=== PATIENT | male | born 1975 | race Caucasian/White ===

== ENCOUNTER → 2017-08-04 | Emergency (ER) | payer MEDICAID ==
[~2017-08-04] VITALS: Ht 175.3 cm; Wt 95.3 kg
[~2017-08-04] MED LIST: ALBUTEROL FS 2.5 MG/0.5 ML VIAL.NEB NEB ONE; ALBUTEROL FS 2.5 MG/0.5 ML VIAL.NEB ONE; ASPIRIN 325 MG TABLET ONE; IOHEXOL-350 100 ML VIAL IV ONE; IPRATROPIUM NEB FS 0.5 MG/2.5 ML AMPUL.NEB NEB ONE; IPRATROPIUM NEB FS 0.5 MG/2.5 ML AMPUL.NEB ONE; IV NS 0.9% 250 ML IV ONE; methylPREDNISolone SOD SUCC 125 MG/2ML VIAL IV ONE; methylPREDNISolone SOD SUCC 125 MG/2ML VIAL ONE
--- NOTE | 2017-08-04 13:17 | NUR ---
AAO4. WALKED INTO ER. C/O SOB SECONDARY TO FIRES. RA 94% O2 SATS. HASNT SMOKED CIGARETTES IN ONE YEAR. SMOKES MARIJUANA ABOUT ONCE A WK.
[2017-08-04 14:02] LABS: BASOPHILS # (AUTO) 0.3 /CMM (0.0-0.2); BASOPHILS % (AUTO) 2.4 % (0.0-2.0); EOSINOPHILS # (AUTO) 1.5 /CMM (0.0-0.7); EOSINOPHILS % (AUTO) 14.7 % (0.0-6.0); HEMATOCRIT 43 % (39-51); HEMOGLOBIN 14.2 g/dL (13.5-17.5); LYMPHOCYTES # (AUTO) 2.2 /CMM (0.8-4.8); LYMPHOCYTES % (AUTO) 21.3 % (20.0-44.0); MEAN CORPUSCULAR HEMOGLOBIN 27 PG (26.0-33.0); MEAN CORPUSCULAR HGB CONC 33 g/dl (31.0-36.0); MEAN CORPUSCULAR VOLUME 82 fL (80-96); MONOCYTES # (AUTO) 0.7 /CMM (0.1-1.30); MONOCYTES % (AUTO) 6.4 % (2.0-12.0); NEUTROPHILS # (AUTO) 5.7 /CMM (1.8-8.9); NEUTROPHILS % (AUTO) 55.2 % (43.0-81.0); PLATELET COUNT (AUTO) 242 /CMM (150-450); RDW COEFFICIENT OF VARIATION 13.7 (11.5-15.0); RED BLOOD CELL COUNT(AUTO) 5.21 MIL/uL (4.5-6.0); WHITE BLOOD COUNT (AUTO) 10.4 K/uL (4.3-11.0)
[2017-08-04 14:13] LABS: CALCIUM, SERUM 8.8 mg/dL (8.5-10.1); CARBON DIOXIDE 31 mmol/L (21-32); CHLORIDE 102 mmol/L (98-107); CREATININE 0.8 mg/dL (0.6-1.3); GLUCOSE 109 mg/dL (74-106); POTASSIUM 3.6 mmol/L (3.5-5.1); SODIUM SERUM 138 mmol/L (136-145); UREA NITROGEN, BLOOD 11 mg/dL (7-18)
[2017-08-04 14:21] LABS: TROPONIN I < 0.017 ng/mL (0.00-0.056)
[2017-08-04 14:25] LABS: ALANINE AMINOTRANSFERASE 18 U/L (12-78); ALBUMIN 3.6 g/dL (3.4-5.0); ALKALINE PHOSPHATASE 93 U/L (46-116); ASPARTATE AMINOTRANSFERASE 18 U/L (15-37); B-TYPE NATRIURETIC PEPTIDE 29 PG/ML (0-125); BILIRUBIN,TOTAL 0.2 mg/dL (0.2-1.0); TOTAL PROTEIN, SERUM 7.8 g/dL (6.4-8.2)
[2017-08-04 14:44] LABS: INR 0.93 (0.87-1.13); PROTHROMBIN TIME 9.7 SECS (9.5-12.7)
[2017-08-04 15:50] LABS: ABG BASE EXCESS 5.1 mmol/L; ABG OXYGEN SATURATION 83.8 % (92.0-98.5); ABG PCO2 48.8 mmHg (35.0-45.0); ABG PH 7.417 (7.350-7.450); ABG PO2 47.9 mmHg (75.0-100.0); AaDO2 43.4 mmHg; COHb 0.5 % (0.5-1.5); MetHb 0.5 % (0.0-1.5); SITE, ABG Right Radial; VENT MODE, BG RA 21%
[2017-08-04 17:43] VITALS: BP 145/89
== END | disposition home or self-care (01) ==
LOC: ER 13:09
DX: J96.00 Acute respiratory failure, unspecified whether with hypoxia or hypercapnia (principal); J84.9 Interstitial pulmonary disease, unspecified; F41.9 Anxiety disorder, unspecified; F12.10 Cannabis abuse, uncomplicated; F17.200 Nicotine dependence, unspecified, uncomplicated
CPT/HCPCS: 36415; 36600 ×2; 71010; 71275; 80048; 80076; 80305; 82803; 83880; 84484; 85025; 85378; 85730; 93005; 94644; 96374; 99285; A4606; J2930; J7050; Q9967; Z7610

== ENCOUNTER 2018-07-28 04:42 | Inpatient (IN) | payer MEDICAID ==
[~2018-07-28] VITALS: Ht 172.7 cm; Wt 98.0 kg
[2018-07-28] VITALS (40 sets, daily range): BP systolic 95–172; BP diastolic 52–138
--- NOTE | 2018-07-28 04:42 | NUR ---
PT CAME IN C/O SEVERE ASTHMA WITH CPAP, DYSPNEA WITH ACCESSORY MUSCLE USE, DIAPHORESIS, JVD, CARPOPEDAL SPASMS. PER EMS 02 SAT 60% ON RA AT HOME. REC'D BREATHING TX EN ROUTE. 20G LEFT HAND LITIGATION COORDINATOR.
--- NOTE | 2018-07-28 04:43 | NUR ---
DR TRIVEDI AND RT AT BEDSIDE. REMOVED FROM EMS CPAP. TRIALED ON RA. STARTED DESATURATING QUICKLY. PLACED ON NC BY RT.
[2018-07-28] MEDS ORDERED: ALBU18HF2 INH (04:46)
[2018-07-28] MEDS ORDERED: XANAX (04:46)
[2018-07-28] MEDS ORDERED: Magnesium 1GM/D5W 100ML PREMIX 200 ML IV ONE (04:47)
[2018-07-28] MEDS ORDERED: Magnesium 1GM/D5W 100ML PREMIX 100 ML IV ONE ×2 (04:53→05:39)
[2018-07-28] MEDS ORDERED: methylPREDNISolone SOD SUCC 125 MG/2ML VIAL ONE (04:53)
[2018-07-28] MEDS ORDERED: ALBUTEROL FS 2.5 MG/3 ML VIAL.NEB ONE (04:55)
[2018-07-28] MEDS ORDERED: EPINEPHRINE (1:1000) 1 MG/ML AMPUL ONE (04:55)
[2018-07-28] MEDS ORDERED: PROPOFOL 100 ML ONE (04:58)
--- NOTE | 2018-07-28 04:59 | NUR ---
MD, RT, AND RNS AT BEDSIDE FOR RSI. ADMINISTERED 100MG PROPOFOL IV PUSH UNDER DIRECT SUPERVISION OF DR TRIVEDI. 8.0 ETT, 26 AT THE LIP. PLACEMENT VERIFIED, POSITIVE COLOR CHANGE. PLACED ON VENT AT THE FOLLOWING SETTINGS, PER MD: AC 20/ TIDAL VOLUME 500/ FIO2 100%/ PEEP 5.
[2018-07-28] MEDS ORDERED: methylPREDNISolone SOD SUCC 125 MG/2ML VIAL IV ONE (05:00)
[2018-07-28] MEDS ORDERED: ALBUTEROL FS 2.5 MG/3 ML VIAL.NEB CONTNEB ONE (05:00)
[2018-07-28] MEDS ORDERED: IPRATROPIUM NEB FS 0.5 MG/2.5 ML AMPUL.NEB NEB ONE (05:00)
[2018-07-28] MEDS ORDERED: EPINEPHRINE (1:1000) 1 MG/ML AMPUL SUBCUT ONE (05:00)
--- NOTE | 2018-07-28 05:05 | NUR ---
PLACED ON 2 POINT RESTRAINT PER PROTOCOL. PROPOFOL DRIP ONGOING, TITRATE FOR ADEQUATE SEDATION.
[2018-07-28 05:07] LABS: ABG BASE EXCESS -0.5 mmol/L; ABG OXYGEN SATURATION 92.3 % (92.0-98.5); ABG PCO2 125.8 mmHg (35.0-45.0); ABG PH 7.059 (7.350-7.450); AaDO2 52.5 mmHg; COHb 1.3 % (0.5-1.5); MetHb 0.4 % (0.0-1.5); O2Hb 90.7 % (94.0-97.0); SITE, ABG Right Radial; VENT MODE, BG NASAL CANNULA
[2018-07-28 05:15] LABS: BASOPHILS # (AUTO) 0.2 /CMM (0.0-0.2); BASOPHILS % (AUTO) 0.8 % (0.0-2.0); EOSINOPHILS % (AUTO) 18.7 % (0.0-6.0); HEMATOCRIT 48 % (39-51); HEMOGLOBIN 15.5 g/dL (13.5-17.5); LYMPHOCYTES % (AUTO) 15.9 % (20.0-44.0); MEAN CORPUSCULAR HGB CONC 32 g/dl (31.0-36.0); MEAN CORPUSCULAR VOLUME 83 fL (80-96); MONOCYTES # (AUTO) 1.3 /CMM (0.1-1.30); MONOCYTES % (AUTO) 6.9 % (2.0-12.0); NEUTROPHILS # (AUTO) 10.8 /CMM (1.8-8.9); NEUTROPHILS % (AUTO) 57.7 % (43.0-81.0); PLATELET COUNT (AUTO) 292 /CMM (150-450); RED BLOOD CELL COUNT(AUTO) 5.82 MIL/uL (4.5-6.0); WHITE BLOOD COUNT (AUTO) 18.7 K/uL (4.3-11.0)
--- NOTE | 2018-07-28 05:15 | NUR ---
CASTRO CATH, 16 FR INSERTED. CLEAR, YELLOW URINE DRAINING TO GRAVITY.
[2018-07-28 05:27] LABS: CALCIUM, SERUM 9.7 mg/dL (8.5-10.1); CREATININE 0.9 mg/dL (0.6-1.3); POTASSIUM 4.3 mmol/L (3.5-5.1)
[2018-07-28] MEDS ORDERED: ACETAMINOPHEN 650 MG/SUPP.RECT RC ONE ×2 (05:30→05:55)
[2018-07-28] MEDS ORDERED: PROPOFOL 10MG/ML 50ML 50 ML IV PRN (05:30)
[2018-07-28] MEDS ORDERED: PROPOFOL 1,000 MG/100 ML BOTTLE IV ONE (05:30)
[2018-07-28] MEDS ORDERED: IV NS 0.9% 1,000 ML BAG IV ONE ×2 (05:30)
[2018-07-28 05:36] LABS: ALANINE AMINOTRANSFERASE 23 U/L (12-78); ALBUMIN 4.2 g/dL (3.4-5.0); ALKALINE PHOSPHATASE 102 U/L (46-116); ASPARTATE AMINOTRANSFERASE 24 U/L (15-37); BILIRUBIN,DIRECT 0.1 mg/dL (0.0-0.2); BILIRUBIN,TOTAL 0.4 mg/dL (0.2-1.0); TOTAL PROTEIN, SERUM 8.8 g/dL (6.4-8.2)
[2018-07-28 05:38] LABS: APPEARANCE,URINE CLEAR (CLEAR); BILIRUBIN,URINE 2+ (NEGATIVE); BLOOD, URINE NEGATIVE Ery/uL (NEGATIVE); COLOR,URINE YELLOW (YELLOW); KETONES,URINE 1+ (NEGATIVE); LEUKOCYTE ESTERASE ,URINE NEGATIVE (NEGATIVE); NITRITE, URINE NEGATIVE (NEGATIVE); PROTEIN,URINE 2+ mg/dl (NEGATIVE); UGLUCOSE NEGATIVE (NEGATIVE); UROBILINOGEN,URINE 0.2 EU/dL (0.2)
--- NOTE | 2018-07-28 05:40 | NUR ---
Candie Busch NP paged.
[2018-07-28 05:48] LABS: BACTERIA,URINE Few /HPF (None Seen); MUCUS,URINE Few /LPF (None Seen); RBC,URINE 0-2 /HPF (0-2); SQUAMOUS EPITHELIAL CELL,UR Few /HPF (None Seen); WBC,URINE 0-2 /HPF (0-3)
--- NOTE | 2018-07-28 05:49 | NUR ---
OG TUBE PLACED, 14 FR, 60 AT THE LIP. PLACEMENT VERIFIED BY ASPIRATION AND AUSCULTATION.
[2018-07-28] MEDS ORDERED: PIPERACILLIN /TAZOBACTAM 3.375 G VIAL IV ONE (05:55)
[2018-07-28 05:59] LABS: ABG OXYGEN SATURATION 99.6 % (92.0-98.5); ABG PCO2 68.9 mmHg (35.0-45.0); ABG PO2 596.8 mmHg (75.0-100.0); AaDO2 47.3 mmHg; MetHb 0.6 % (0.0-1.5); PEEP,BG 5 cm H2O; SITE, ABG Left Radial; VENT MODE, BG A/C 20 500 100% +5; VT, ABG 500 mL
[2018-07-28] MEDS ORDERED: PIPERACILLIN /TAZOBACTAM 3.375 G in IV D5W 50 ML IV ONE (06:00)
[2018-07-28] MEDS ORDERED: IPRATROPIUM NEB FS 0.5 MG/2.5 ML AMPUL.NEB ONE (06:04)
--- NOTE | 2018-07-28 06:16 | NUR ---
PER RT ANDREW, FIO2 NOW 60%
--- NOTE | 2018-07-28 06:42 | NUR ---
REPORT GIVEN TO JOSE GUADALUPE SHEPARD FOR BED 258
--- NOTE | 2018-07-28 07:23 | NUR ---
PT.RECEIVED AND TRANSFERRED FROM ER #5 TO ICU 258 WITH SAME MECH VENT VIA ETT SIZE 8.0 SECURED @ 28CM LIPLINE WITH SETTINGS BELOW ORDER: AC 20 VT 500 FIO2 60% PEEP +5 BREATH SOUNDS WHEEZING BILATERAL. MECH VENT PLUGGED INTO RED OUTLET WITH ALARMS ON AND FUNCTIONING. TUYET @ BEDSIDE. Addendum: 07/28/18 at 0728 by AMRIT REYES RT Amended: Links added.
--- NOTE | 2018-07-28 07:30 | NUR ---
DIRECTOR OF LOGISTICS RECEIVED PATIENT FROM THE ER. TRANSFERRED THE PATIENT TO BED WITH 4 PERSON ASSIST. PATIENT IS INTUBATED AND SEDATED AT THIS TIME. STABLE VITAL SINGS. NO ACUTE DISTRESS. VENT SETTINGS WERE REVIEWED AND VERIFIED. RESTRAINTS ARE IN PLACE FOR SAFETY. WILL CONTINUE TO MONITOR AND PROVIDE CARE.
[2018-07-28] MEDS ORDERED: ALBUTEROL FS 2.5 MG/0.5 ML VIAL.NEB NEB PRN (08:30)
[2018-07-28] MEDS ORDERED: IPRATROPIUM NEB FS 0.5 MG/2.5 ML AMPUL.NEB IH PRN (08:30)
[2018-07-28 09:09] LABS: ABG BASE EXCESS -1.3 mmol/L; ABG OXYGEN SATURATION 97.8 % (92.0-98.5); ABG PCO2 52.2 mmHg (35.0-45.0); ABG PO2 122.9 mmHg (75.0-100.0); AaDO2 247.5 mmHg; COHb 0.8 % (0.5-1.5); MetHb 0.6 % (0.0-1.5); O2Hb 96.4 % (94.0-97.0); SITE, ABG Right Radial; VT, ABG 500 mL
[2018-07-28] MEDS ORDERED: TERBUTALINE SULFATE 1 MG/ML VIAL SQ PRN (10:00)
[2018-07-28] MEDS: Potassium Chloride 10 MEQ in IV D5/ 0.9% NACL 1,000 ML IV SCH ×3 (10:16→20:32)
[2018-07-28] MEDS: ENOXAPARIN SODIUM 40 MG/0.4 ML DISP.SYRIN SQ SCH (10:16)
[2018-07-28] MEDS: methylPREDNISolone SOD SUCC 40 MG/ML VIAL IV SCH ×3 (10:16→20:34)
[2018-07-28] MEDS: PROPOFOL 100 ML IV PRN ×6 (10:16→22:11)
[2018-07-28] MEDS: LEVOFLOXACIN 500 MG /D5W 100ML 500 MG in PREMIX 1 EA IV SCH (10:16)
[2018-07-28] MEDS: IPRATROPIUM NEB FS 0.5 MG/2.5 ML AMPUL.NEB IH SCH ×4 (11:30→23:33)
[2018-07-28] MEDS: ALBUTEROL FS 2.5 MG/0.5 ML VIAL.NEB NEB SCH ×4 (11:30→23:33)
[2018-07-28] MEDS ORDERED: ALBUTEROL FS 2.5 MG/0.5 ML VIAL.NEB NEB SCH (13:30)
[2018-07-28] MEDS ORDERED: IPRATROPIUM NEB FS 0.5 MG/2.5 ML AMPUL.NEB IH SCH (13:30)
--- NOTE | 2018-07-28 17:26 | NUR ---
RT END OF THE SHIFT REPORT; PT. 43 Y OLD MALE REC. ORALLY INTUBATED ETT #8.0 @ 26-28CM LIP LINE WITH NOTED SETTINGS, B/S RALES BILATERALLY, EQUAL CHEST RISE NOTED, SUX'D FOR MOD. AMT SECRETIONS, HME CHANGED AMBU BAG REMIAN AT THE BEDSIDE. PT. STABLE REPORT WILL PASS TO PM SHIFT. VENT PLUGGED INTO RED OUT LET. Addendum: 07/28/18 at 1727 by LEMUEL BRIDGES RT Amended: Links added.
--- NOTE | 2018-07-28 20:00 | NUR ---
REDYE HAND - RECEIVED PATIENT IN BED. PATIENT IS INTUBATED AND SEDATED AT THIS TIME. STABLE VITAL SINGS. NO ACUTE DISTRESS. VENT SETTINGS WERE REVIEWED AND VERIFIED. RESTRAINTS ARE IN PLACE FOR SAFETY. WILL CONTINUE TO MONITOR AND PROVIDE CARE.
--- NOTE | 2018-07-28 20:34 | NUR ---
RECEIVED PT INTUBATED 8.0 ETT SECURED AT 28CM AT THE LIP. NO RESP DISTRESS NOTED. PT TOLERATING VENT SETTINGS. BS CL DM. ETT SECURE AND IN GOOD POSITION, CUFF PHARMACY INFORMATICS MANAGER. VENT ALARMS SET AND AUDIBLE. AMBU BAG AT BEDSIDE. WILL CONTINUE TO MONITOR. Addendum: 07/28/18 at 2035 by KARIN HERCULES RT Amended: Links added.
[2018-07-29] VITALS (39 sets, daily range): BP systolic 97–147; BP diastolic 56–80
[2018-07-29] MEDS: PROPOFOL 100 ML IV PRN ×4 (02:39→07:32)
[2018-07-29] MEDS: ALBUTEROL FS 2.5 MG/0.5 ML VIAL.NEB NEB SCH ×6 (03:26→23:00)
[2018-07-29] MEDS: IPRATROPIUM NEB FS 0.5 MG/2.5 ML AMPUL.NEB IH SCH ×6 (03:26→23:00)
[2018-07-29 04:28] LABS: BASOPHILS % (AUTO) 0.1 % (0.0-2.0); HEMATOCRIT 40 % (39-51); HEMOGLOBIN 12.6 g/dL (13.5-17.5); LYMPHOCYTES # (AUTO) 0.6 /CMM (0.8-4.8); LYMPHOCYTES % (AUTO) 4.6 % (20.0-44.0); MEAN CORPUSCULAR HGB CONC 32 g/dl (31.0-36.0); MEAN CORPUSCULAR VOLUME 82 fL (80-96); MONOCYTES # (AUTO) 0.6 /CMM (0.1-1.30); MONOCYTES % (AUTO) 4.1 % (2.0-12.0); NEUTROPHILS # (AUTO) 12.2 /CMM (1.8-8.9); NEUTROPHILS % (AUTO) 91.2 % (43.0-81.0); PLATELET COUNT (AUTO) 170 /CMM (150-450); RED BLOOD CELL COUNT(AUTO) 4.85 MIL/uL (4.5-6.0); WHITE BLOOD COUNT (AUTO) 13.4 K/uL (4.3-11.0)
[2018-07-29] MEDS: methylPREDNISolone SOD SUCC 40 MG/ML VIAL IV SCH ×3 (04:43→21:30)
[2018-07-29 04:58] LABS: CALCIUM, SERUM 8.8 mg/dL (8.5-10.1); CREATININE 0.7 mg/dL (0.6-1.3); POTASSIUM 3.7 mmol/L (3.5-5.1)
[2018-07-29] MEDS: Potassium Chloride 10 MEQ in IV D5/ 0.9% NACL 1,000 ML IV SCH ×2 (06:01→17:35)
--- NOTE | 2018-07-29 07:55 | NUR ---
Report received from Alejandro RN; on bilateral soft wrist restraints; awakens easily to stimulation .
--- NOTE | 2018-07-29 07:58 | NUR ---
S/o Lauryn given updates via phone
[2018-07-29] MEDS ORDERED: DC PROPOFOL WHEN EXTUBATED XX PRN (08:00)
--- NOTE | 2018-07-29 08:28 | NUR ---
RT PATIENT REC'D ORALLY INTUBATED ON [facility] VENT WITH ORDERED SETTINGS MAI WELL. VENT ALARMS CHECKED + AUDIBLE. CUFF PRESSURE CHECKED ELECTROENCEPHALOGRAPHIC TECHNICIAN. BREATH SOUNDS WHEEZING THROUGHOUT. PATIENT AIRWAY SUCTIONED AND PATENT. SMALL AMT OF PALE SEMITHICK SECRETIONS. PATIENT SEDATED AND COMFORTABLE. AMBU BAG AT HOB Addendum: 07/29/18 at 0828 by ABI QUEEN RT Amended: Links added.
[2018-07-29] MEDS: ENOXAPARIN SODIUM 40 MG/0.4 ML DISP.SYRIN SQ SCH (08:50)
[2018-07-29] MEDS: LEVOFLOXACIN 500 MG /D5W 100ML 500 MG in PREMIX 1 EA IV SCH (08:51)
[2018-07-29 09:22] LABS: ABG OXYGEN SATURATION 98.6 % (92.0-98.5); ABG PCO2 32.2 mmHg (35.0-45.0); ABG PH 7.485 (7.350-7.450); ABG PO2 164.9 mmHg (75.0-100.0); AaDO2 83.3 mmHg; COHb 0.3 % (0.5-1.5); MetHb 0.7 % (0.0-1.5); O2Hb 97.6 % (94.0-97.0); SITE, ABG Right Radial
--- NOTE | 2018-07-29 09:32 | NUR ---
RT PATIENT WAS WEANED AND EXTUBATED PER DR GOFF VERBAL ORDER. PATIENT TOLERATED EXTUBATING WELL, PLACED ON 2L NASAL CANNULA. STRONG COUGH, BREATH SOUNDS WHEEZING. NO SOB REPORTED
--- NOTE | 2018-07-29 10:36 | NUR ---
extubated at 0932 c/o Ariel RT as ordered by Dr Mitchell; pt tolerated extubation
--- NOTE | 2018-07-29 10:48 | NUR ---
nursing bedside swallow evaluation done; tolerated sips of water without coughing, no s/s of aspiration
--- NOTE | 2018-07-29 15:20 | NUR ---
sawant catheter dc'd per pt request; urinal provided
[2018-07-29] MEDS: ACETAMINOPHEN 325 MG TABLET PO PRN (17:05)
--- NOTE | 2018-07-29 18:21 | NUR ---
latest temp at 98.8 F after tylenol 650 mg tablet
--- NOTE | 2018-07-29 19:04 | NUR ---
handoff repor at bedside given to Joanne SHI
[2018-07-30] VITALS (25 sets, daily range): BP systolic 122–153; BP diastolic 67–94
[2018-07-30] MEDS: IPRATROPIUM NEB FS 0.5 MG/2.5 ML AMPUL.NEB IH SCH ×6 (02:57→23:37)
[2018-07-30] MEDS: ALBUTEROL FS 2.5 MG/0.5 ML VIAL.NEB NEB SCH ×6 (02:57→23:37)
[2018-07-30] MEDS: Potassium Chloride 10 MEQ in IV D5/ 0.9% NACL 1,000 ML IV SCH ×2 (04:50→20:55)
[2018-07-30] MEDS: methylPREDNISolone SOD SUCC 40 MG/ML VIAL IV SCH ×3 (04:56→20:56)
[2018-07-30 05:13] LABS: BASOPHILS % (AUTO) 0.1 % (0.0-2.0); HEMATOCRIT 38 % (39-51); HEMOGLOBIN 12.6 g/dL (13.5-17.5); LYMPHOCYTES # (AUTO) 0.7 /CMM (0.8-4.8); LYMPHOCYTES % (AUTO) 6.6 % (20.0-44.0); MEAN CORPUSCULAR HGB CONC 33 g/dl (31.0-36.0); MEAN CORPUSCULAR VOLUME 81 fL (80-96); MONOCYTES # (AUTO) 0.5 /CMM (0.1-1.30); MONOCYTES % (AUTO) 4.8 % (2.0-12.0); NEUTROPHILS # (AUTO) 8.9 /CMM (1.8-8.9); NEUTROPHILS % (AUTO) 88.5 % (43.0-81.0); PLATELET COUNT (AUTO) 159 /CMM (150-450); RED BLOOD CELL COUNT(AUTO) 4.72 MIL/uL (4.5-6.0)
[2018-07-30 05:23] LABS: CALCIUM, SERUM 8.6 mg/dL (8.5-10.1); CREATININE 0.7 mg/dL (0.6-1.3); POTASSIUM 3.6 mmol/L (3.5-5.1)
--- NOTE | 2018-07-30 07:16 | NUR ---
FOOD WRITER PT REMAINED ON O2 2L NC WITH SOB AND WHEEZING ON EXERTION. NSR/ST ON MONITOR. PT DENIED PAIN. PT ABLE TO URINATE POST CASTRO CATH REMOVAL. PT DECLINED BED BATH. PTS SISTER CALLED MULTIPLE TIMES AND GIVEN UPDATE.
--- NOTE | 2018-07-30 07:44 | NUR ---
CARVER AND CHECKERER SPECIALS NOTE PATIENT IN BED , ALERT , ORIENTED X3 , ON 2L NS SAT 93% , ON TELE MONITOR SR 80 , LT HAND AND RT HAND HL INTACT , ON IVF ORDERED, BED IN LOWEST AND LOCKED POSITION , CALL LIGHT WITHIN REACH , PLAN OF CARE DISCUSSED WITH PAPO , STILL NOTED WHEEZING ON EXERTION ,WILL CONT TO MONITOR CLOSELY
[2018-07-30] MEDS: LEVOFLOXACIN 500 MG /D5W 100ML 500 MG in PREMIX 1 EA IV SCH (08:22)
[2018-07-30] MEDS: ENOXAPARIN SODIUM 40 MG/0.4 ML DISP.SYRIN SQ SCH (08:52)
[2018-07-30] MEDS ORDERED: MENTHOL/CETYLPYRD (CEPACOL) 1 LOZ LOZENGE PO PRN (09:30)
--- NOTE | 2018-07-30 10:00 | NUR ---
QA AUTOMATION ARCHITECT NOTE RT AT BEDSIDE ,NASAL SUCTION DONE ,KEEP CLEAN DRY, ALL NEEDS ATTENDED, FAMILY AT BEDSIDE Addendum: 07/30/18 at 1330 by GIOVANI ESQUIVEL RN WRONG ENTRY ,WRONG CHART
--- NOTE | 2018-07-30 11:00 | NUR ---
PAINTLESS DENT REPAIR TECHNICIAN NOTE ON O2 ORDERED NO SOB NOTED . FAMILY AT BEDSIDE
--- NOTE | 2018-07-30 11:46 | NUR ---
GEODETIC SURVEYOR TECHNOLOGIST NOTE PER DR DESAI ORDER OK TO HOSPICE ,WILL NOTICED TO MEDICAL DOSIMETRIST Addendum: 07/30/18 at 1330 by GIOVANI ESQUIVEL RN WRONG ENTRY, WRONG CHART
--- NOTE | 2018-07-30 12:00 | NUR ---
HOGSHEAD ROLLER NOTE ON BREATHING TX .ALL NEEDS ATTENDED
--- NOTE | 2018-07-30 13:20 | NUR ---
MEDSUR RN NOTE RECEIVED REPORT FROM ANIMAL CARE ASSISTANT GIOVANI AND RECEIVED PATIENT FROM ICU AT 13:10. PATIENT ALERT AND ORIENTED ABLE TO MAKE NEEDS KNOWN, SOME ANXIETY/FRUSTRATION NOTED. ON O2 VIA NASAL CANNULA AT 2LPM, DENIES SHORTNESS OF BREATH OR PAIN AT THIS TIME. ORIENTED TO UNIT, FAMILY AT BEDSIDE. IV FLUIDS INFUSING ORDERED. BED IN LOW LOCKED POSITION, CALL LIGHT WITHIN REACH, WILL CONTINUE TO MONITOR CLOSELY.
--- NOTE | 2018-07-30 13:22 | NUR ---
[employer] COMPANY DRIVER NOTE PATIENT TRANSFERRED TO MED SURGE UNIT ORDERED. REPORT GIVEN TO DONTRELL SHI , WENT TO MED SURGE WITH STABLE CONDITION
[2018-07-30] MEDS: ACETAMINOPHEN 325 MG TABLET PO PRN ×2 (16:37→21:36)
--- NOTE | 2018-07-30 19:20 | NUR ---
DIEGO RN NOTE PATIENT RESTING IN BED IN STABLE CONDITION, FAMILY AT BEDSIDE. ABLE TO MAKE NEEDS KNOWN. NO RESPIRATORY DISTRESS NOTED. NO COMPLAINT OF PAIN. BED IN LOW LOCKED POSITION, CALL LIGHT WITHIN REACH, ENDORSED TO ETHNOGRAPHER NURSE FOR CONTINUITY OF CARE.
--- NOTE | 2018-07-30 19:25 | NUR ---
MS RN NOTE: RECEIVED PT ON BED WITH HOB ELEVATED. PT IS A/O X3. FAMILY AT BEDSIDE. NO APPARENT DISTRESS NOTED. DENIES PAIN AND DISCOMFORT AT THIS TIME. ON 3LPM NASAL CANNULA, NO SOB NOTED. IV ON RIGHT HAND #18 INTACT AND PATENT. NO SIGNS/SYMPTOMS OF INFILTRATION NOTED. KEPT CLEAN, DRY AND COMFORTABLE. CALL LIGHT WITHIN REACH. SIDE RAILS UP X2. BED ALARM ON, BED LOCKED AND IN LOWEST POSITION. WILL CONTINUE TO MONITOR PT.
[2018-07-31] MEDS: ALBUTEROL FS 2.5 MG/0.5 ML VIAL.NEB NEB SCH ×6 (03:02→23:27)
[2018-07-31] MEDS: IPRATROPIUM NEB FS 0.5 MG/2.5 ML AMPUL.NEB IH SCH ×6 (03:02→23:27)
[2018-07-31 04:00] VITALS: BP 126/77
[2018-07-31] MEDS: methylPREDNISolone SOD SUCC 40 MG/ML VIAL IV SCH ×3 (04:11→21:15)
[2018-07-31] MEDS: Potassium Chloride 10 MEQ in IV D5/ 0.9% NACL 1,000 ML IV SCH (05:56)
--- NOTE | 2018-07-31 06:30 | NUR ---
MS RN NOTE: NO CHANGES NOTED THROUGHOUT THE SHIFT. NO APPARENT DISTRESS NOTED. PT ON 5LPM NASAL CANNULA, SATURATING 91-94%. DENIES PAIN AND DISCOMFORT AT THIS TIME. IV ON RIGHT HAND #18 INTACT AND PATENT WITH IVF D5NS + 10MEQS KCL RUNNING 100ML/HR. NO SIGNS/SYMPTOMS OF INFILTRATION NOTED. KEPT CLEAN, DRY AND COMFORTABLE. CALL LIGHT PLACED WITHIN REACH. ALL NEEDS ATTENDED. WILL ENDORSE TO DAY SHIFT RN FOR CONTINUITY OF CARE.
--- NOTE | 2018-07-31 07:30 | NUR ---
RN NOTE: RECEIVED PATIENT IN BED, ON HIGH BACK REST, CURRENTLY ON BREATHING TREATMENT, A/0 X4, NOT ON ANY FORM OF DISTRESS, DENIES ANY PAIN, BREATHING UNLABORED AT THIS TIME.IV ON THE RIGHT HAND: IN PLACE AND INTACT, PATENT ON FLUSHING, NO REDNESS, NO S/S OF INFILTRATION NOTED, WITH ONGOING IVF OF D5NS WITH 10 MEQS OF KCL RUNNING AT 100 CC/HR. SAFETY MEASURES OBSERVED AND MAINTAINED. SIDE RAILS UP X2, BED LOW AND LOCKED, BED ALARM ON, CALL LIGHT WITHIN REACH, WILL CONTINUE TO ANTICIPATE NEEDS AND MONITOR PATIENT CLOSELY
[2018-07-31 08:00] VITALS: BP 146/84
[2018-07-31] MEDS ORDERED: IPRA3AMP23 IH (08:11)
[2018-07-31] MEDS ORDERED: FLUT1DIS3 INH (08:14)
[2018-07-31] MEDS ORDERED: LEVO750T21 PO (08:14)
[2018-07-31] MEDS ORDERED: PRED20TA PO (08:14)
[2018-07-31] MEDS: ENOXAPARIN SODIUM 40 MG/0.4 ML DISP.SYRIN SQ SCH (08:49)
[2018-07-31] MEDS ORDERED: LEVOFLOXACIN (250MG) 250 MG TABLET PO SCH (09:00)
[2018-07-31] MEDS ORDERED: LEVOFLOXACIN (500MG) 500 MG TABLET PO SCH (09:00)
[2018-07-31 12:00] VITALS: BP 146/84
[2018-07-31] MEDS: MONTELUKAST SODIUM (10MG) 10 MG TABLET PO SCH ×2 (14:58→21:15)
[2018-07-31 16:00] VITALS: BP 126/75
--- NOTE | 2018-07-31 19:03 | NUR ---
RN NOTES ENDORSED PATIENT FOR CONTINUITY OF CARE. NO ACUTE CHANGES THROUGHOUT THE SHIFT. PATIENT ON SUPPLEMENTAL OXYGEN AT 3LPM VIA NASAL CANNULA, NO COMPLAINS OF SHORTNESS OF BREATH, SATING 90-93%, ALL NURSING NEEDS ATTENDED AND MET, SAFETY MEASURES KEPT AT ALL TIMES,BED ALARM ON, BED LOW AND LOCKED POSITION. CALL LIGHT WITHIN REACH AT ALL TIMES
--- NOTE | 2018-07-31 19:46 | NUR ---
MS RN NOTE: RECEIVED PT ON BED WITH HOB ELEVATED. PT IS ALERT/ORIENTED X3. ABLE TO MAKE NEEDS KNOWN. NO APPARENT DISTRESS NOTED. NO COMPLAINTS OF PAIN OR DISCOMFORT AT THIS TIME. ON 3LPM NASAL CANNULA, NO SOB NOTED. SATURATING >90%. IV ON RIGHT HAND #18 INTACT AND PATENT, FLUSHING WELL. NO SIGNS/SYMPTOMS OF INFILTRATION NOTED. KEPT CLEAN, DRY AND COMFORTABLE. CALL LIGHT WITHIN REACH. SIDE RAILS UP X2. BED ALARM ON, BED LOCKED AND IN LOWEST POSITION. WILL CONTINUE TO MONITOR PT.
[2018-07-31 20:00] VITALS: BP 125/83
--- NOTE | 2018-08-01 02:00 | NUR ---
CAR CARDER NOTE: PATIENT WAS DISCHARGED TO [facility] IN STABLE CONDITION. ON 2LPM NASAL CANNULA, SATURATING WELL. NO SOB NOTED. NO COMPLAINTS OF PAIN OR DISCOMFORT AT THIS TIME. REPORT GIVEN TO PEPE, STATED NOT TO REMOVE PERIPHERAL IV LINE. IV ON RIGHT HAND #18 INTACT AND PATENT, FLUSHING WELL. VITAL SIGNS STABLE. BELONGINGS CHECKED AND SIGNED BY PT. EXIT CARE PROVIDED. DISCHARGE INSTRUCTIONS GIVEN.
[2018-08-01] MEDS ORDERED: FLUTICASONE/VILANTEROL 1 EACH BLST.W.DEV IH SCH (09:00)
== END 2018-08-01 02:06 | disposition short-term general hospital (02) | DRG 140 ==
LOC: ER 04:45 → ICU 06:22 → MEDSG1 07-30 13:02
PROVIDERS: ADMIT Internal Medicine; ATTEND Internal Medicine
PROC: 5A1945Z Respiratory Ventilation, 24-96 Consecutive Hours (ICD-10-PCS; principal; 2018-07-28)
PROC: 0BH17EZ Insertion of Endotracheal Airway into Trachea, Via Natural or Artificial Opening (ICD-10-PCS; principal; 2018-07-28)
DX: J44.1 Chronic obstructive pulmonary disease with (acute) exacerbation (principal); J96.02 Acute respiratory failure with hypercapnia; F41.9 Anxiety disorder, unspecified; Z87.891 Personal history of nicotine dependence
CPT/HCPCS: 31720; 36415; 36600; 71045-TC; 80048-TC; 80076-TC; 81000-TC; 82803-TC; 82962-TC; 83605-TC; 83880; 84484-TC; 85025-TC; 85730-TC; 87040-TC; 87081-TC; 87086-TC; 87400; 94002-TC; 94003-TC; 94760-TC; 94799-TC; A4216; A4606; G0378; J0171; J1650; J1956; J2543; J2920; J2930; J3105; J3475; J3480; J3490; J7030; J7042; J7060; Z7610